=== PATIENT | male | born 2000 | race Caucasian/White ===

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

== ENCOUNTER 2023-02-16 12:55 | Emergency (ER) | payer MEDICAID ==
[~2023-02-16] VITALS: Ht 188 cm; Wt 64.0 kg
[~2023-02-16 12:55] MED LIST changes: +CEPH-571 PO; -CLON-529 PO; +IBUP-1986 PO; -QUET25TA PO
[2023-02-16 13:28] VITALS: BP 140/99
[2023-02-16] MEDS ORDERED: AMOX-117 PO (13:32)
[2023-02-16] MEDS ORDERED: IBUP-864 PO (13:32)
== END 2023-02-16 13:34 | disposition home or self-care (01) ==
LOC: ER 12:55
DX: K08.89 Other specified disorders of teeth and supporting structures (principal); Z79.2 Long term (current) use of antibiotics; Z79.899 Other long term (current) drug therapy
CPT/HCPCS: 99283

== ENCOUNTER → 2023-06-07 | Emergency (ER) | payer MEDICAID ==
[~2023-06-07] VITALS: Ht 188 cm; Wt 58.8 kg
[~2023-06-07] MED LIST changes: +AMOX-117 PO; +IBUP-1984 PO; +IBUP-864 PO; +amox tr/potassium clavulanate 875/125mg TAB PO ONE; +ibuprofen tablet 400 MG TABLET PO ONE
[2023-06-07 16:53] VITALS: BP 139/76; PULSE 83; TEMP 98.8; O2SAT 99
[2023-06-07 17:22] VITALS: RESP 18
--- NOTE | 2023-06-07 18:58 | NUR ---
I AGREE WITH THE ASSESSMENT OF Effie ZUÑIGA LVN
== END | disposition home or self-care (01) ==
LOC: ER 16:26
DX: K04.7 Periapical abscess without sinus (principal); Z79.2 Long term (current) use of antibiotics; Z79.1 Long term (current) use of non-steroidal anti-inflammatories (NSAID)
CPT/HCPCS: 99283